=== PATIENT | male | born 1955 | race Caucasian/White ===

== ENCOUNTER 2023-08-19 10:39 | Inpatient (IN) | payer OTHER ==
[~2023-08-19] VITALS: Ht 160 cm; Wt 117.9 kg
[2023-08-19 10:42] VITALS: BP_SYST 156; PULSE 99; RESP 26; TEMP 99.3; O2SAT 85
[2023-08-19] MEDS ORDERED: ASPIRIN 81 MG TAB.CHEW PO ONE (11:15)
[2023-08-19] MEDS ORDERED: PIPERACILLIN/TAZO 3.375 GM in NS 50 ML IV ONE (11:15)
[2023-08-19] MEDS ORDERED: FUROSEMIDE 20 MG/2 ML VIAL IVP ONE (11:15)
[2023-08-19] MEDS ORDERED: NITROGLYCERIN 1 INCH (GM) OINT. TD ONE (11:15)
[2023-08-19 11:23] LABS: BASOPHILS % (AUTO) 0.4 % (0.0-2.0); EOSINOPHILS % (AUTO) 0.3 % (0.0-4.0); HEMATOCRIT 45.9 % (36-54); HEMOGLOBIN 15.5 g/dL (14.0-18.0); LYMPHOCYTES # (AUTO) 0.6 K/uL (1.0-5.5); LYMPHOCYTES % (AUTO) 10.3 % (20.5-51.5); MEAN CORPUSCULAR HEMOGLOBIN 31 pg (27-31); MEAN CORPUSCULAR HGB CONC 34 % (32-36); MEAN CORPUSCULAR VOLUME 91 fL (79.0-98.0); MONOCYTES # (AUTO) 0.7 K/uL (0.0-1.0); NEUTROPHILS # (AUTO) 4.8 K/uL (1.8-7.7); PLATELET COUNT (AUTO) 238 K/uL (130-430); RED BLOOD CELL COUNT(AUTO) 5.04 MIL/uL (4.2-6.2); RED CELL DISTRIBUTION WIDTH 15.4 % (9.0-15.0); WHITE BLOOD COUNT (AUTO) 6.2 K/uL (4.8-10.8)
[2023-08-19] MEDS ORDERED: PIPERACILLIN/TAZOBACTAM 3.375 GM/VIAL (ZOSYN) IV ONE (11:24)
[2023-08-19 11:37] LABS: ANION GAP 6 (5-15); CALCIUM 8.4 mg/dL (8.4-11.0); CARBON DIOXIDE 31 mmol/L (23-29); CHLORIDE 96 mmol/L (98-107); CREATININE 0.87 mg/dL (0.55-1.30); GLUCOSE 114 mg/dL (74-106); POTASSIUM 4.1 mmol/L (3.5-5.1); SODIUM SERUM 133 mmol/L (136-145); UREA NITROGEN, BLOOD 15 mg/dL (8-21)
[2023-08-19 11:44] LABS: GFR AFRICAN AMERICAN 112 mL/min (>90); GFR NON AFRICAN-AMERICAN 92 mL/min (>90)
[2023-08-19 11:47] LABS: INFLUENZA TYPE A NEGATIVE (NEGATIVE)
[2023-08-19 11:48] LABS: INFLUENZA TYPE B POSITIVE (NEGATIVE)
[2023-08-19] MEDS ORDERED: OSELTAMIVIR PHOSPHATE 75 MG CAPSULE PO ONE (12:45)
[2023-08-19] MEDS ORDERED: IPRA3AMP9 HHN (19:10)
[2023-08-19] MEDS ORDERED: FLUT16SP16 NS (19:10)
[2023-08-19] MEDS ORDERED: FINA5TAB11 PO (19:10)
[2023-08-19] MEDS ORDERED: LOSA50TA28 PO (19:10)
[2023-08-19] MEDS: 0.45% NACL 1,000 ML IV SCH (20:53)
[2023-08-19] MEDS: PIPERACILLIN/TAZO 3.375/DEX-IS 50 ML IV SCH (22:35)
[2023-08-20] VITALS (8 sets, daily range): BP systolic 125–156; PULSE 90–101; RESP 20–22; TEMP 100.4–100.5; O2SAT 94–100
[2023-08-20 04:42] LABS: BASOPHILS % (AUTO) 0.4 % (0.0-2.0); EOSINOPHILS # (AUTO) 0.1 K/uL (0.0-0.4); EOSINOPHILS % (AUTO) 0.9 % (0.0-4.0); HEMATOCRIT 44.2 % (36-54); HEMOGLOBIN 14.9 g/dL (14.0-18.0); LYMPHOCYTES # (AUTO) 0.9 K/uL (1.0-5.5); LYMPHOCYTES % (AUTO) 12.4 % (20.5-51.5); MEAN CORPUSCULAR HEMOGLOBIN 31 pg (27-31); MEAN CORPUSCULAR HGB CONC 34 % (32-36); MEAN CORPUSCULAR VOLUME 92 fL (79.0-98.0); MONOCYTES # (AUTO) 0.7 K/uL (0.0-1.0); MONOCYTES % (AUTO) 9.8 % (1.7-9.3); NEUTROPHILS # (AUTO) 5.4 K/uL (1.8-7.7); NEUTROPHILS % (AUTO) 76.5 % (40.0-70.0); PLATELET COUNT (AUTO) 221 K/uL (130-430); RED BLOOD CELL COUNT(AUTO) 4.81 MIL/uL (4.2-6.2); RED CELL DISTRIBUTION WIDTH 15.3 % (9.0-15.0); WHITE BLOOD COUNT (AUTO) 7.1 K/uL (4.8-10.8)
[2023-08-20 05:00] LABS: CALCIUM 7.9 mg/dL (8.4-11.0); CREATININE 1.18 mg/dL (0.55-1.30); POTASSIUM 4.1 mmol/L (3.5-5.1)
[2023-08-20 05:12] LABS: THYROID STIMULATING HORMONE 0.34 uIu/mL (0.34-4.82); TOTAL BILIRUBIN 0.5 mg/dL (0.0-1.0); TOTAL PROTEIN, SERUM 7.4 g/dL (6.4-8.3)
[2023-08-20] MEDS: PIPERACILLIN/TAZO 3.375/DEX-IS 50 ML IV SCH ×3 (06:04→21:44)
[2023-08-20] MEDS: ACETAMINOPHEN 325 MG TABLET PO PRN (09:22)
[2023-08-20] MEDS: IPRATROPIUM/ALBUTEROL SULFATE 3 ML AMPUL.NEB (DUONEB) INH SCH ×4 (12:04→23:11)
[2023-08-20] MEDS: OSELTAMIVIR PHOSPHATE 75 MG CAPSULE PO SCH ×2 (12:05→21:43)
[2023-08-20] MEDS: LOSARTAN POTASSIUM 50 MG TABLET (COZAAR) PO SCH (12:06)
[2023-08-20] MEDS: FINASTERIDE 5 MG TABLET (PROSCAR) PO SCH (12:06)
[2023-08-20] MEDS: 0.45% NACL 1,000 ML IV SCH (14:00)
[2023-08-20] MEDS ORDERED: IPRATROPIUM/ALBUTEROL SULFATE 3 ML AMPUL.NEB (DUONEB) IH SCH (15:00)
[2023-08-20] MEDS: DOXYCYCLINE HYCLATE 100 MG in D5W 100 ML IV SCH (16:00)
[2023-08-20] MEDS: FLUTICASONE PROPIONATE 50 mCg/SPRAY 16 GM NS SCH (21:44)
[2023-08-21] VITALS (11 sets, daily range): BP systolic 128–152; PULSE 64–88; RESP 16–20; TEMP 99–100.2; O2SAT 92–96
[2023-08-21] MEDS: ACETAMINOPHEN 325 MG TABLET PO PRN (01:34)
[2023-08-21] MEDS: IPRATROPIUM/ALBUTEROL SULFATE 3 ML AMPUL.NEB (DUONEB) INH SCH ×6 (03:11→23:01)
[2023-08-21] MEDS: DOXYCYCLINE HYCLATE 100 MG in D5W 100 ML IV SCH ×2 (04:02→16:07)
[2023-08-21] MEDS: PIPERACILLIN/TAZO 3.375/DEX-IS 50 ML IV SCH ×3 (06:07→22:01)
[2023-08-21 06:09] LABS: BASOPHILS % (AUTO) 0.5 % (0.0-2.0); EOSINOPHILS # (AUTO) 0.1 K/uL (0.0-0.4); EOSINOPHILS % (AUTO) 1.4 % (0.0-4.0); HEMOGLOBIN 13.8 g/dL (14.0-18.0); LYMPHOCYTES % (AUTO) 17.3 % (20.5-51.5); MEAN CORPUSCULAR HEMOGLOBIN 31 pg (27-31); MEAN CORPUSCULAR HGB CONC 33 % (32-36); MEAN CORPUSCULAR VOLUME 93 fL (79.0-98.0); MONOCYTES # (AUTO) 0.5 K/uL (0.0-1.0); MONOCYTES % (AUTO) 9.2 % (1.7-9.3); NEUTROPHILS # (AUTO) 4.3 K/uL (1.8-7.7); NEUTROPHILS % (AUTO) 71.6 % (40.0-70.0); PLATELET COUNT (AUTO) 205 K/uL (130-430); RED BLOOD CELL COUNT(AUTO) 4.52 MIL/uL (4.2-6.2); WHITE BLOOD COUNT (AUTO) 5.9 K/uL (4.8-10.8)
[2023-08-21 06:42] LABS: ALBUMIN 2.7 g/dL (3.4-4.8); CALCIUM 7.7 mg/dL (8.4-11.0); CREATININE 0.98 mg/dL (0.55-1.30); POTASSIUM 3.7 mmol/L (3.5-5.1); TOTAL BILIRUBIN 0.3 mg/dL (0.0-1.0); TOTAL PROTEIN, SERUM 7.1 g/dL (6.4-8.3)
[2023-08-21] MEDS: LOSARTAN POTASSIUM 50 MG TABLET (COZAAR) PO SCH (08:52)
[2023-08-21] MEDS: OSELTAMIVIR PHOSPHATE 75 MG CAPSULE PO SCH ×2 (08:52→20:22)
[2023-08-21] MEDS: FINASTERIDE 5 MG TABLET (PROSCAR) PO SCH (08:52)
[2023-08-21] MEDS: 0.45% NACL 1,000 ML IV SCH (12:18)
[2023-08-21] MEDS: FLUTICASONE PROPIONATE 50 mCg/SPRAY 16 GM NS SCH ×2 (12:18→22:06)
[2023-08-21] MEDS ORDERED: methylPREDNISolone SOD SUCC/PF 62.5 MG/ML VIAL IVP ONE (13:30)
[2023-08-21] MEDS: methylPREDNISolone SOD SUCC/PF 62.5 MG/ML VIAL IVP SCH ×2 (17:54→23:56)
[2023-08-21] MEDS: VANCOMYCIN HCL 750 MG in NS 250 ML IV SCH (17:54)
[2023-08-22] VITALS (12 sets, daily range): BP systolic 115–152; PULSE 77–86; RESP 16–20; TEMP 98.4–99.1; O2SAT 92–96
[2023-08-22] MEDS: IPRATROPIUM/ALBUTEROL SULFATE 3 ML AMPUL.NEB (DUONEB) INH SCH ×5 (03:45→22:08)
[2023-08-22] MEDS: DOXYCYCLINE HYCLATE 100 MG in D5W 100 ML IV SCH ×2 (03:47→19:29)
[2023-08-22] MEDS: PIPERACILLIN/TAZO 3.375/DEX-IS 50 ML IV SCH ×3 (05:11→22:40)
[2023-08-22] MEDS: 0.45% NACL 1,000 ML IV SCH (05:14)
[2023-08-22] MEDS: VANCOMYCIN HCL 750 MG in NS 250 ML IV SCH ×2 (06:07→19:49)
[2023-08-22] MEDS: methylPREDNISolone SOD SUCC/PF 62.5 MG/ML VIAL IVP SCH (06:07)
[2023-08-22 08:38] LABS: BLOOD GAS BASE EXCESS 6.6 mmol/L (-3.0-3.0); BLOOD GAS HCO3 35.6 mmol/L (21.0-27.0); BLOOD GAS PH 7.315 (7.350-7.450)
[2023-08-22 08:41] LABS: BLOOD GAS PCO2 71.5 mmHg (32.0-45.0)
[2023-08-22 08:42] LABS: ABG O2 SAT% ESTIMATE 86.8 % (94.0-100.0); ALLEN'S TEST POSITIVE (P); BLOOD GAS PO2 58.1 mmHg (75.0-100.0)
[2023-08-22] MEDS: FAMOTIDINE 20 MG TABLET PO SCH (09:07)
[2023-08-22] MEDS: OSELTAMIVIR PHOSPHATE 75 MG CAPSULE PO SCH ×2 (09:07→20:54)
[2023-08-22] MEDS: LOSARTAN POTASSIUM 50 MG TABLET (COZAAR) PO SCH (09:08)
[2023-08-22] MEDS: FINASTERIDE 5 MG TABLET (PROSCAR) PO SCH (09:17)
[2023-08-22] MEDS: FLUTICASONE PROPIONATE 50 mCg/SPRAY 16 GM NS SCH ×2 (09:18→20:54)
[2023-08-22] MEDS: METHYLPREDNISOLONE SOD SUCC 40 MG/ML VIAL IVP SCH (20:54)
[2023-08-23] VITALS (15 sets, daily range): BP systolic 122–150; PULSE 72–90; RESP 16–20; TEMP 97.9–98.4; O2SAT 89–98
[2023-08-23] MEDS: IPRATROPIUM/ALBUTEROL SULFATE 3 ML AMPUL.NEB (DUONEB) INH SCH ×7 (00:37→23:03)
[2023-08-23] MEDS: 0.45% NACL 1,000 ML IV SCH ×2 (01:43→22:58)
[2023-08-23] MEDS: DOXYCYCLINE HYCLATE 100 MG in D5W 100 ML IV SCH (03:31)
[2023-08-23 06:04] LABS: BASOPHILS % (AUTO) 0.2 % (0.0-2.0); EOSINOPHILS % (AUTO) 0.1 % (0.0-4.0); HEMATOCRIT 42.4 % (36-54); HEMOGLOBIN 13.9 g/dL (14.0-18.0); LYMPHOCYTES # (AUTO) 0.7 K/uL (1.0-5.5); LYMPHOCYTES % (AUTO) 8.7 % (20.5-51.5); MEAN CORPUSCULAR HEMOGLOBIN 31 pg (27-31); MEAN CORPUSCULAR HGB CONC 33 % (32-36); MEAN CORPUSCULAR VOLUME 93 fL (79.0-98.0); MONOCYTES # (AUTO) 0.5 K/uL (0.0-1.0); MONOCYTES % (AUTO) 6.1 % (1.7-9.3); NEUTROPHILS # (AUTO) 6.7 K/uL (1.8-7.7); NEUTROPHILS % (AUTO) 84.9 % (40.0-70.0); PLATELET COUNT (AUTO) 224 K/uL (130-430); RED BLOOD CELL COUNT(AUTO) 4.54 MIL/uL (4.2-6.2); RED CELL DISTRIBUTION WIDTH 15.1 % (9.0-15.0); WHITE BLOOD COUNT (AUTO) 7.9 K/uL (4.8-10.8)
[2023-08-23 06:21] LABS: ALBUMIN 2.7 g/dL (3.4-4.8); CALCIUM 8.4 mg/dL (8.4-11.0); CREATININE 0.78 mg/dL (0.55-1.30); POTASSIUM 4.5 mmol/L (3.5-5.1); TOTAL BILIRUBIN 0.3 mg/dL (0.0-1.0); TOTAL PROTEIN, SERUM 7.2 g/dL (6.4-8.3)
[2023-08-23] MEDS: LOSARTAN POTASSIUM 50 MG TABLET (COZAAR) PO SCH (09:45)
[2023-08-23] MEDS: FAMOTIDINE 20 MG TABLET PO SCH (09:45)
[2023-08-23] MEDS: METHYLPREDNISOLONE SOD SUCC 40 MG/ML VIAL IVP SCH ×2 (09:45→21:46)
[2023-08-23] MEDS: OSELTAMIVIR PHOSPHATE 75 MG CAPSULE PO SCH ×2 (09:45→20:46)
[2023-08-23] MEDS: FINASTERIDE 5 MG TABLET (PROSCAR) PO SCH (09:46)
[2023-08-23] MEDS: levoFLOXacin 500 MG TABLET PO SCH (09:48)
[2023-08-23] MEDS: FLUTICASONE PROPIONATE 50 mCg/SPRAY 16 GM NS SCH ×2 (09:49→20:46)
[2023-08-23] MEDS: guaiFENesin/DEXTROMETHORPHAN 10 ML UDC PO PRN (22:59)
[2023-08-24] VITALS (15 sets, daily range): BP systolic 141–160; PULSE 65–85; RESP 16–19; TEMP 97.4–98.6; O2SAT 90–98
[2023-08-24] MEDS: IPRATROPIUM/ALBUTEROL SULFATE 3 ML AMPUL.NEB (DUONEB) INH SCH ×5 (02:53→20:12)
[2023-08-24] MEDS: guaiFENesin/DEXTROMETHORPHAN 10 ML UDC PO PRN (04:46)
[2023-08-24 05:44] LABS: BASOPHILS % (AUTO) 0.1 % (0.0-2.0); HEMOGLOBIN 14.5 g/dL (14.0-18.0); LYMPHOCYTES # (AUTO) 0.7 K/uL (1.0-5.5); LYMPHOCYTES % (AUTO) 10.1 % (20.5-51.5); MEAN CORPUSCULAR HEMOGLOBIN 31 pg (27-31); MEAN CORPUSCULAR HGB CONC 33 % (32-36); MEAN CORPUSCULAR VOLUME 93 fL (79.0-98.0); MONOCYTES # (AUTO) 0.3 K/uL (0.0-1.0); MONOCYTES % (AUTO) 4.5 % (1.7-9.3); NEUTROPHILS # (AUTO) 5.9 K/uL (1.8-7.7); NEUTROPHILS % (AUTO) 85.3 % (40.0-70.0); PLATELET COUNT (AUTO) 262 K/uL (130-430); RED BLOOD CELL COUNT(AUTO) 4.71 MIL/uL (4.2-6.2); RED CELL DISTRIBUTION WIDTH 15.1 % (9.0-15.0); WHITE BLOOD COUNT (AUTO) 6.9 K/uL (4.8-10.8)
[2023-08-24 06:18] LABS: ALBUMIN 2.9 g/dL (3.4-4.8); CALCIUM 8.7 mg/dL (8.4-11.0); CREATININE 0.91 mg/dL (0.55-1.30); POTASSIUM 4.9 mmol/L (3.5-5.1); TOTAL BILIRUBIN 0.3 mg/dL (0.0-1.0); TOTAL PROTEIN, SERUM 7.3 g/dL (6.4-8.3); VANCOMYCIN,TROUGH 1.4 ug/mL (10.0-20.0)
[2023-08-24] MEDS: METHYLPREDNISOLONE SOD SUCC 40 MG/ML VIAL IVP SCH ×2 (08:47→21:23)
[2023-08-24] MEDS: LOSARTAN POTASSIUM 50 MG TABLET (COZAAR) PO SCH (08:47)
[2023-08-24] MEDS: OSELTAMIVIR PHOSPHATE 75 MG CAPSULE PO SCH ×2 (08:48→21:23)
[2023-08-24] MEDS: FINASTERIDE 5 MG TABLET (PROSCAR) PO SCH (08:48)
[2023-08-24] MEDS: FAMOTIDINE 20 MG TABLET PO SCH (08:48)
[2023-08-24] MEDS: FLUTICASONE PROPIONATE 50 mCg/SPRAY 16 GM NS SCH ×2 (10:14→21:24)
[2023-08-24] MEDS: levoFLOXacin 500 MG TABLET PO SCH (10:14)
[2023-08-24] MEDS: 0.45% NACL 1,000 ML IV SCH (21:25)
[2023-08-25] VITALS (14 sets, daily range): BP systolic 120–149; PULSE 67–89; RESP 17–19; TEMP 97–98.6; O2SAT 82–100
[2023-08-25] MEDS: IPRATROPIUM/ALBUTEROL SULFATE 3 ML AMPUL.NEB (DUONEB) INH SCH ×7 (00:19→23:04)
[2023-08-25] MEDS: FINASTERIDE 5 MG TABLET (PROSCAR) PO SCH (08:43)
[2023-08-25] MEDS: METHYLPREDNISOLONE SOD SUCC 40 MG/ML VIAL IVP SCH ×2 (08:43→22:51)
[2023-08-25] MEDS: FAMOTIDINE 20 MG TABLET PO SCH (08:44)
[2023-08-25] MEDS: LOSARTAN POTASSIUM 50 MG TABLET (COZAAR) PO SCH (08:44)
[2023-08-25] MEDS: FLUTICASONE PROPIONATE 50 mCg/SPRAY 16 GM NS SCH ×2 (08:45→22:52)
[2023-08-25] MEDS: levoFLOXacin 500 MG TABLET PO SCH (10:32)
[2023-08-25] MEDS: 0.45% NACL 1,000 ML IV SCH ×2 (14:00→17:37)
[2023-08-25 17:32] LABS: BLOOD GAS PH 7.409 (7.350-7.450)
[2023-08-25 17:33] LABS: BLOOD GAS PCO2 59.3 mmHg (32.0-45.0)
[2023-08-25 17:34] LABS: BLOOD GAS BASE EXCESS 9.6 mmol/L (-3.0-3.0); BLOOD GAS HCO3 36.7 mmol/L (21.0-27.0); BLOOD GAS PO2 44.5 mmHg (75.0-100.0)
[2023-08-25 17:35] LABS: ABG O2 SAT% ESTIMATE 79.6 % (94.0-100.0); ALLEN'S TEST POSITIVE (P)
[2023-08-26] VITALS (7 sets, daily range): BP systolic 130–150; PULSE 74–101; RESP 15–22; TEMP 97–98.4; O2SAT 91–97
[2023-08-26] MEDS: IPRATROPIUM/ALBUTEROL SULFATE 3 ML AMPUL.NEB (DUONEB) INH SCH ×4 (03:20→15:36)
[2023-08-26 06:18] LABS: BASOPHILS % (AUTO) 0.2 % (0.0-2.0); EOSINOPHILS % (AUTO) 0.1 % (0.0-4.0); HEMATOCRIT 45.3 % (36-54); HEMOGLOBIN 15.1 g/dL (14.0-18.0); LYMPHOCYTES # (AUTO) 0.7 K/uL (1.0-5.5); LYMPHOCYTES % (AUTO) 8.4 % (20.5-51.5); MEAN CORPUSCULAR HEMOGLOBIN 31 pg (27-31); MEAN CORPUSCULAR HGB CONC 33 % (32-36); MEAN CORPUSCULAR VOLUME 92 fL (79.0-98.0); MONOCYTES # (AUTO) 0.3 K/uL (0.0-1.0); NEUTROPHILS # (AUTO) 7.2 K/uL (1.8-7.7); NEUTROPHILS % (AUTO) 87.3 % (40.0-70.0); PLATELET COUNT (AUTO) 269 K/uL (130-430); RED BLOOD CELL COUNT(AUTO) 4.93 MIL/uL (4.2-6.2); RED CELL DISTRIBUTION WIDTH 15.1 % (9.0-15.0); WHITE BLOOD COUNT (AUTO) 8.2 K/uL (4.8-10.8)
[2023-08-26 06:35] LABS: CALCIUM 8.9 mg/dL (8.4-11.0); CREATININE 0.85 mg/dL (0.55-1.30); POTASSIUM 4.9 mmol/L (3.5-5.1)
[2023-08-26] MEDS: FAMOTIDINE 20 MG TABLET PO SCH (10:25)
[2023-08-26] MEDS: FINASTERIDE 5 MG TABLET (PROSCAR) PO SCH (10:25)
[2023-08-26] MEDS: levoFLOXacin 500 MG TABLET PO SCH (10:26)
[2023-08-26] MEDS: LOSARTAN POTASSIUM 50 MG TABLET (COZAAR) PO SCH (10:26)
[2023-08-26] MEDS: FLUTICASONE PROPIONATE 50 mCg/SPRAY 16 GM NS SCH (10:32)
[2023-08-26] MEDS: METHYLPREDNISOLONE SOD SUCC 40 MG/ML VIAL IVP SCH (11:00)
[2023-08-26] MEDS ORDERED: PRED20TA PO (12:59)
[2023-08-26] MEDS ORDERED: LEVO-62 PO (13:02)
== END 2023-08-26 19:12 | disposition home health service (06) | DRG 871 ==
LOC: SED 10:39 → STU 17:57 → SMU 08-25 13:19
PROVIDERS: ADMIT Internal Medicine; ATTEND Internal Medicine
PROC: 5A09357 Assistance with Respiratory Ventilation, Less than 24 Consecutive Hours, Continuous Positive Airway Pressure (ICD-10-PCS; principal; 2023-08-22)
PROC: 5A09357 Assistance with Respiratory Ventilation, Less than 24 Consecutive Hours, Continuous Positive Airway Pressure (ICD-10-PCS; 2023-08-23)
PROC: 5A09357 Assistance with Respiratory Ventilation, Less than 24 Consecutive Hours, Continuous Positive Airway Pressure (ICD-10-PCS; 2023-08-24)
PROC: 5A09357 Assistance with Respiratory Ventilation, Less than 24 Consecutive Hours, Continuous Positive Airway Pressure (ICD-10-PCS; 2023-08-25)
DX: A41.9 Sepsis, unspecified organism (principal); J10.08 Influenza due to other identified influenza virus with other specified pneumonia; J12.9 Viral pneumonia, unspecified; J44.0 Chronic obstructive pulmonary disease with (acute) lower respiratory infection; Z68.42 Body mass index [BMI] 45.0-49.9, adult; N40.0 Benign prostatic hyperplasia without lower urinary tract symptoms; E66.01 Morbid (severe) obesity due to excess calories; U09.9 Post COVID-19 condition, unspecified; I50.9 Heart failure, unspecified; I11.0 Hypertensive heart disease with heart failure; Z20.822 Contact with and (suspected) exposure to COVID-19; I27.20 Pulmonary hypertension, unspecified; Z79.1 Long term (current) use of non-steroidal anti-inflammatories (NSAID); Z79.899 Other long term (current) drug therapy; Z79.52 Long term (current) use of systemic steroids; Z90.49 Acquired absence of other specified parts of digestive tract
CPT/HCPCS: 36415; 36600; 71045; 71250-TC; 76376; 80048; 80053; 80061; 80202; 82800-TC; 82803; 83605; 83880; 84443; 84484; 85025; 85651; 87040; 93005; 93306; 94640; 94660; 94760; 96365; 96375; 99285; G0378; G9035; J1030; J1940; J2543; J2930; J3490; J7050; J7060